=== PATIENT | male | born 1950 | race Caucasian/White ===

== ENCOUNTER 2023-07-27 11:05 | Emergency (ER) | payer MEDICARE, OTHER, SELFPAY ==
[2023-07-27] VITALS (20 sets, daily range): BP systolic 122–165; BP diastolic 81–95; PULSE 60–67; RESP 12–24; TEMP 36.7; O2SAT 89–100; BMI 33.9
--- NOTE | 2023-07-27 11:22 | ECG_ITS ---
[facility] Test Date: 2023-07-27 Pat Name: DARRION KIDD Department: Room: - Gender: Male [employer]: : 1950 Requested By: Order Number: [id number] Reading MD: KINGSLEY BLANCO Measurements Intervals [place] Rate: 66 P: 57 SD: 114 QRS: 52 QRSD: 96 T: 61 QT: 400 QTc: 414 Interpretive Statements 1100 Sinus rhythm [address] depression, can't exclude inferolateral ischemia 9150 abnormal ECG Electronically Signed On 07-27-2023 14:26:57 EST by KINGSLEY BLANCO
--- NOTE | 2023-07-27 11:22 | XR_ITS ---
[facility] [place] [id number] Patient Name: DARRION KIDD MRN: [id number] date: 1950 Sex: M Assigned Patient Location: ER Current Patient Location: ER Accession/Order Number: [id number] Exam Date: 07/27/2023 11:40 Report Date: 07/27/2023 12:01 At the request of: TREVA GRESHAM Procedure: XR chest 1V XR chest 1V, 07/27/2023 11:40 AM EST, OH001 INDICATION: CP COMPARISON: Chest radiograph from 05/11/2022 TECHNIQUE: Frontal view of the chest obtained. FINDINGS: The heart is normal in size. The aorta and mediastinum appear unremarkable. The pulmonary vasculature is normal. The lung volumes are slightly decreased. No focal infiltrate or consolidation is seen. There is no evidence of pneumothorax or pleural effusion. The osseous structures appear intact. XR/XR chest 1V IMPRESSION: No active pulmonary process. Electronically authenticated by: SHON SÁNCHEZ Date: 07/27/2023 12:01
--- NOTE | 2023-07-27 11:22 | ED_ITS ---
HPI - Chest Pain General Chief Complaint: Chest Pain Stated Complaint: CHEST PAIN/ COUGH Time Seen by Provider: 07/27/23 11:12 Source: patient Mode of arrival: walk-in History of Present Illness HPI narrative: 73-year-old male presents for chest pain. He's been having it intermittently since yesterday and it's across his chest and feels like a dull pressure. No trauma or fever. He had a slight cough today, nonproductive and no fever. The pain in his chest started before the cough. He also has a pruritic rash on both forearms. No new medications and no new soaps or detergents or any other new products. He had eaten some pickle's and some spicy foods and thinks that may be the cause of his symptom. Related Data Home Medications Medication Instructions Recorded Confirmed celecoxib 200 mg capsule 200 mg PO Q12H 07/27/23 07/27/23 gabapentin 400 mg capsule 400 mg PO Q12H 07/27/23 07/27/23 lisinopril 10 mg tablet 10 mg PO DAILY 07/27/23 07/27/23 metoprolol succinate 100 mg 100 mg PO DAILY 07/27/23 07/27/23 tablet,extended release 24 hr Allergies Allergy/AdvReac Type Severity Reaction Status Date / Time No Known Drug Allergies Allergy Verified 07/27/23 11:14 Review of Systems ROS Narrative A ten point review of systems is negative except as noted above. PFSH PFSH Social History Smoking status: Former smoker Exam Narrative Exam Narrative: Nurses note and vital signs reviewed and patient is not hypoxic. General: The patient appears well and in no apparent distress. Patient is resting comfortably on cart. Skin: Warm, dry, no pallor noted. There is if any erythematous rash present on the flexor side of each forearm. Head: Normocephalic, atraumatic Eye: Normal conjunctiva, no drainage Ears, Nose, Mouth, and Throat: oral mucosa is moist. Nares patent. Cardiovascular: Regular Rate and Rhythm Respiratory: Patient is in no distress, no accessory muscle use, lungs are clear to auscultation, no wheezing, rales or rhonchi Back: non-tender GI: soft and nontender Musculoskeletal: The patient has no evidence of calf tenderness, no pitting edema, symmetrical pulses noted bilaterally Neurological: A&O x4, normal speech Psychiatric: Cooperative Constitutional Vital Signs, click to edit/add: Last Vital Signs Temp 98.0 F 07/27/23 11:10 Pulse 60 07/27/23 12:10 Resp 12 07/27/23 12:10 BP 122/84 07/27/23 12:15 Pulse Ox 97 07/27/23 12:10 O2 Del Method Room Air 07/27/23 12:04 Course Vital Signs Vital signs: Vital Signs Temperature 98.0 F 07/27/23 11:10 Pulse Rate 66 07/27/23 11:10 Respiratory Rate 16 07/27/23 11:10 Blood Pressure 165/94 H 07/27/23 11:10 Pulse Oximetry 89 L 07/27/23 11:10 Temperature 98.0 F 07/27/23 11:10 Pulse Rate 60 07/27/23 12:10 Respiratory Rate 12 07/27/23 12:10 Blood Pressure 122/84 07/27/23 12:15 Pulse Oximetry 97 07/27/23 12:10 Oxygen Delivery Method Room Air 07/27/23 12:04 MDM - Chest Pain MDM Narrative Medical decision making narrative: His workup including two sets of troponin is negative and he is able to be discharged home. Hydrocortisone cream was recommended for the rash. At this point I do not suspect acute coronary syndrome. Treatment diagnosis and follow- up were discussed with the patient and his . Differential Diagnosis Differential diagnosis: Likely pneumothorax, unstable angina pectoris, atypical chest pain, st elevation myocardial infarction, costochondritis and chest pain Lab Data Attestation: I reviewed the patient's lab results. Labs: Lab Results 07/27/23 07/27/23 07/27/23 Range/Units 11:26 11:57 12:32 WBC 9.5 (4.0-11.0) 10^3/uL RBC 5.18 (4.70-6.10) 10^6/uL Hgb 15.1 (14.0-18.0) g/dL Hct 47.8 (42.0-54.0) % MCV 92.3 (80.0-94.0) fL MCH 29.2 (25.9-34.0) pg MCHC 31.6 (29.9-35.2) g/dL RDW 14.1 (11.0-15.0) % Plt Count 159 (150-450) 10^3/uL MPV 10.5 (9.5-13.5) fL Neut % (Auto) 70.4 (43.0-75.0) % Lymph % (Auto) 17.1 L (20.5-60.0) % Patrick % (Auto) 10.2 (1.7-12.0) % Eos % (Auto) 1.8 (0.9-7.0) % Baso % (Auto) 0.2 (0.2-2.0) % Neut # (Auto) 6.7 H (1.4-6.5) 10^3/uL Lymph # (Auto) 1.6 (1.2-3.8) 10^3/uL Patrick # (Auto) 1.0 H (0.3-0.8) 10^3/uL Eos # (Auto) 0.2 (0.0-0.7) 10^3/uL Baso # (Auto) 0.0 (0.0-0.1) 10^3/uL Abs Immat Gran (auto) 0.03 (0.00-0.03) 10^3/uL Imm/Tot Granulo (auto) 0.3 (0.0-0.5) % Sodium 141 (136-145) mmol/L Potassium 4.6 (3.5-5.1) mmol/L Chloride 108 H (98-107) mmol/L Carbon Dioxide 25.4 (21.0-32.0) mmol/L Anion Gap 12.2 BUN 15.0 (7.0-18.0) mg/dL Creatinine 1.06 (0.70-1.30) mg/dL Est GFR ( Amer) >60 (>=60) Est GFR (Non-Af Amer) >60 (>=60) BUN/Creatinine Ratio 14.2 Glucose 85 (74-106) mg/dL Calcium 9.2 (8.5-10.1) mg/dL Troponin I High Sens 9.2 9.3 (4.0-76.1) pg/mL Influenza Type A Ag Negative Influenza Type B Ag Negative SARS-CoV-2 Ag (CV2AG) Negative (NEGATIVE) Imaging Data Chest x-ray: Radiologist's impression: ITS Impressions Chest X-Ray 07/27/23 11:22 IMPRESSION: No active pulmonary process. Electronically authenticated by: SHON SÁNCHEZ Date: 07/27/2023 12:01 ECG Data Attestation: I personally reviewed and interpreted this ECG as follows: (EKG on my interpretation shows sinus rhythm without acute change in a rate of 66.) Heart Score History: Slightly/Non-Suspicious ECG: Normal Age: >65 years Risk Factors: 1 or 2 Risk Factors Troponin: <Normal Limit Total Heart Score Recommendations & Risks:: 3 Discharge Plan Discharge Chief Complaint: Chest Pain Clinical Impression: Chest pain Patient Disposition: Home, Self-Care Time of Disposition Decision: 13:11 Condition: Good Mode of Transportation: Private Vehicle Prescriptions / Home Meds: No Action celecoxib 200 mg capsule 200 mg PO Q12H metoprolol succinate 100 mg tablet extended release 24 hr 100 mg PO DAILY gabapentin 400 mg capsule 400 mg PO Q12H lisinopril 10 mg tablet 10 mg PO DAILY Instructions: Chest Pain (ED) Stand Alone Forms: Portal Instructions Referrals: OSVALDO MATT [Primary Care Provider] - 1 week
[2023-07-27 11:38] LABS: Basophils Percent Auto 0.2 % (0.2-2.0); Eosinophils Absolute Auto 0.2 10^3/uL (0.0-0.7); Eosinophils Percent Auto 1.8 % (0.9-7.0); Hematocrit 47.8 % (42.0-54.0); Hemoglobin 15.1 g/dL (14.0-18.0); Immature Granulocytes Abs Auto 0.03 10^3/uL (0.00-0.03); Immature Granulocytes Pct Auto 0.3 % (0.0-0.5); Lymphocytes Absolute Auto 1.6 10^3/uL (1.2-3.8); Lymphocytes Percent Auto 17.1 % (20.5-60.0); Mean Corpuscular HGB Conc 31.6 g/dL (29.9-35.2); Mean Corpuscular Hemoglobin 29.2 pg (25.9-34.0); Mean Corpuscular Volume 92.3 fL (80.0-94.0); Mean Platelet Volume 10.5 fL (9.5-13.5); Monocytes Percent Auto 10.2 % (1.7-12.0); Neutrophils Absolute Auto 6.7 10^3/uL (1.4-6.5); Neutrophils Percent Auto 70.4 % (43.0-75.0); Platelet Count 159 10^3/uL (150-450); Red Blood Count 5.18 10^6/uL (4.70-6.10); Red Cell Distribution Width 14.1 % (11.0-15.0); White Blood Count 9.5 10^3/uL (4.0-11.0)
[2023-07-27 12:02] LABS: Anion Gap 12.2; BUN Creatinine Ratio 14.2; Calcium 9.2 mg/dL (8.5-10.1); Carbon Dioxide 25.4 mmol/L (21.0-32.0); Chloride 108 mmol/L (98-107); Estimated GFR (African America >60 (>=60); Estimated GFR (Non-African Ame >60 (>=60); Glucose 85 mg/dL (74-106); Potassium 4.6 mmol/L (3.5-5.1); Sodium 141 mmol/L (136-145); Troponin I High Sensitivity 9.2 pg/mL (4.0-76.1)
[2023-07-27 12:16] LABS: Influenza Virus A Antigen Negative; Influenza Virus B Antigen Negative; Internal Control Within Normal Limits; SARS-CoV-2 Ag NEGATIVE (NEGATIVE)
[2023-07-27 12:54] LABS: Troponin I High Sensitivity 9.3 pg/mL (4.0-76.1)
== END 2023-07-27 13:45 | disposition home or self-care (01) ==
PROVIDERS: Emergency Provider Emergency Medicine; PCP Internal Medicine
DX: R07.9 Chest pain, unspecified (principal); Z79.899 Other long term (current) drug therapy; Z87.891 Personal history of nicotine dependence; Z20.822 Contact with and (suspected) exposure to COVID-19
CPT/HCPCS: 36415; 71045; 80048; 84484; 85025; 87804; 87811; 93005; 99285

== ENCOUNTER 2023-12-11 19:31 | Outpatient (OUT) | payer MEDICARE, OTHER, SELFPAY ==
--- OUTSIDE RECORDS SUMMARY | 2023-12-11 19:35 | XMS_ITS | CCD ---
Author Organization [facility] Care Team Providers Care Sustainable Agriculture Specialist Name Role Phone PHYSICIAN, DEFAULT Unavailable Unavailable PHYSICIAN, DEFAULT Unavailable Unavailable VLADIMIR CAVAZOS Unavailable Unavailable No, Physician Primary Care Provider UnavailVladimir Arellano Unavailable LINDA RUTH Consulting Unavailable GERALD, DR HARISH Gallardo Attending Unavailable GERALD, DR HARISH Gallardo Admitting Unavailable PERAZA, DR SANTIAGO Stanton Primary Care Unavailable PERAZA, DR SANTIAGO Stanton Attending Unavailable SARA, DR SANTIAGO Stanton Consulting Unavailable SARA, DR SANTIAGO Stanton Primary Care Unavailable PERAZA, DR SANTIAGO Stanton Admitting Unavailable PERAZA, DR SANTIAGO Stanton Admitting Unavailable PERAZA, DR SANTIAGO Stanton Attending Unavailable PERAZA, DR SANTIAGO Stanton Consulting Unavailable PERAZA, DR SANTIAGO Stanton Primary Care Unavailable MILLER, DR PEG Sacnhez Attending Unavaillucius BHATT, DR PEG Sanchez Consulting Unavaillucius BHATT, DR PEG Sanchez Admitting Unavaillucius PERAZA, DR SANTIAGO Stanton Primary Care Unavailable POPPY, DR TUCKER Keller Consulting Unavailable Jaron Agee. Attending Unavailable Clarice Gilman Attending Unavailable Yue Estevez Unavailable Vladimir Cavazos MD Primary Care Provider NO FAMILY, PHYSICIAN Primary Care Provider UnaMD Sharan Perera Attending Provider ABBEY ROWE Attending Unavailable VLADIMIR CAVAZOS Attending Unavailable NAOMI SAENZ Attending Unavailable SHARAN AMAYA Referring Unavailable Sharan Amaya Attending Unavailable Sharan Amaya Admitting Unavailable NO FAMILY, PHYSICIAN Primary Care Unavailable Allergies Allergy Classification Reported Allergen(s) Allergy Type Date of Onset Reaction(s) Facility (1 source) No Known Medication Allergies; Translations: [No Known Medication Allergies] Propensity to adverse reactions (disorder) [facility] Repository Medications Current Medications Medication Drug Class(es) Dates Sig (Normalized) Sig (Original) celecoxib 200 mg oral capsule (2 sources) Nonsteroidal Anti-inflammatory Drug take 1 capsule by mouth every twelve hours CeleBREX 200 MG 1 capsule with food Orally TWICE A DAY Active take 1 capsule by mo uth every twenty-four hours CeleBREX 200 MG 1 capsule with food Orally Once a day Active 24 hr dilTIAZem hydrochloride 240 mg extended release oral capsule (1 source) Calcium Channel Jagjit take 1 capsule by mouth once daily, then take 1 capsule by mouth every twenty-four hours diltiazem CD (CARDIZEM CD) 240 mg 24 hr capsule Take 240 mg by mouth daily. 0 Active gabapentin 400 mg oral capsule (3 sources) Anti-epileptic Agent take 1 capsule by mouth twice daily gabapentin (NEURONTIN) 400 mg capsule Take 400 mg by mouth 2 (two) times a day. 0 Active take 1 capsule by mo uth every twenty-four hours Gabapentin 400 MG 1 capsule Orally Once a day Active lisinopril 10 mg oral tablet (3 sources) Angiotensin Converting Enzyme Inhibitor take 1 tablet by mouth once daily lisinopril (PRINIVIL,ZESTRIL) 10 mg tablet Take 10 mg by mouth daily. 0 Active meloxicam 15 mg oral tablet (1 source) Nonsteroidal Anti-inflammatory Drug take 1 tablet by mouth once daily meloxicam (MOBIC) 15 mg tablet Take 15 mg by mouth daily. 0 Active methylPREDNISolone 4 mg oral tablet (1 source) Corticosteroid Start: 2023 Medrol (Rob) 4 MG as directed Orally for daily dose take half with breakfast half with dinner for 6 days Jul, Active 24 hr metoprolol succinate 100 mg extended release oral tablet (2 sources) beta-Adrenergic Jagjit take 1 tablet by mouth every twenty-four hours Metoprolol Succinate ER 100 MG 1 tablet Orally Once a day Active tamsulosin hydrochloride 0.4 mg oral capsule (1 source) alpha-Adrenergic Jagjit take 1 capsule by mouth every twenty-four hours Tamsulosin HCl 0.4 MG 1 capsule Orally Once a day Active Completed/Discontinued Medications Medication Drug Class(es) Dates Sig (Normalized) Sig (Original) diphenhydrAMINE hydrochloride 25 mg oral capsule (1 source) Histamine-1 Receptor Antagonist take 1 capsule by mouth every twenty-four hours diphenhydrAMINE HCl 25 MG 1 capsule at bedtime as needed Orally Once a day Not-Taking/PRN Problems Active Problems Problem Classification Problem Date Documented Date Episodic/Chronic Allergic reactions (1 source) Unspecified contact dermatitis, unspecified cause Episodic Cataract (1 source) Nuclear sclerotic cataract; Translations: [Age-related nuclear cataract, right eye] Onset: 7 02-18-2017 Chronic Disorders of lipid metabolism (1 source) Pure hypercholesterolemia, unspecified; Translations: [PURE HYPERCHOLESTEROLEMIA UNSPEC] Onset: 2 Chronic Essential hypertension (4 sources) Essential (primary) hypertension; Translations: [ESSENTIAL PRIMARY HYPERTENSION] Onset: 2 Chronic Gout and other crystal arthropathies (5 sources) Gout, unspecified; Translations: [GOUT UNSPECIFIED] Onset: 2 Chronic Osteoarthritis (1 source) Unilateral primary osteoarthritis, right knee; Translations: [UNI PRIM OSTEOARTHRITIS RT KNEE] Onset: 2 Chronic Other aftercare (1 source) Other medical terminologist (current) drug therapy; Translations: [OTH CAR DETAILER CURRENT DRUG THERAPY] Onset: 2 Episodic Other bone disease and musculoskeletal deformities (2 sources) Idiopathic scoliosis of lumbar spine; Translations: [Other idiopathic scoliosis, lumbar region] Chronic Other diseases of veins and lymphatics (2 sources) Venous insufficiency of leg; Translations: [Venous insufficiency (chronic) (peripheral)] Episodic Other male genital disorders (1 source) Disorder of prostate, unspecified; Translations: [DISORDER OF PROSTATE UNSPECIFIED] Onset: 2 Episodic Other non-traumatic joint disorders (1 source) Pain in unspecified joint; Translations: [Pain in unspecified joint] Onset: 4 Episodic Spondylosis; intervertebral disc disorders; other back problems (3 sources) Prolapsed lumbar intervertebral disc; Translations: [Other intervertebral disc displacement, lumbar region] Chronic Unclassified (2 sources) COUGH, UNSPECIFIED; Translations: [COUGH, UNSPECIFIED] Onset: 2 Viral infection (1 source) COVID-19; Translations: [COVID-19] Onset: 2 Past or Other Problems Problem Classification Problem Date Documented Da te Episodic/Chronic Spondylosis; intervertebral disc disorders; other back problems (5 sources) Spinal stenosis, lumbar region without neurogenic claudication; Translations: [Radiculopathy, lumbar region] Onset: 08-24-2021 Episodic Unclassified (1 source) COUGH, UNSPECIFIED; Translations: [COUGH, UNSPECIFIED] Onset: 05-11-2022 Results Test Name Value Interpretation Reference Range Facility [facility] Antinuclear Antibodieson 10-22-2023 Antinuclear Abs, IFA Negative Normal . [facility] Comment on above: Result Comment: Nega tive <1:80 Borderline 1:80 Positive >1:80 ICAP nomenclature: [id number] For more information about Hep-2 cell patterns use ANApatterns.org, the official website for the International Consensus on Antinuclear Antibody ([facility]) Patterns (ICAP). Performed at: - [facility] [address] [id number] Travel Consultant: David Lawson PhD, Phone: [phone] PERFORMED BY: [place] [address] RECORDER SHAHNAZ BEAL M.D. Performed By: #### C MP, PTH, CRP, ESR, CBC #### [address] #### [place] #### [facility] , Alanine aminotransferase [En zymatic activity/volume] in Serum or PlasmaOrdered By: Sharan Amaya on 10-22-2023 ALT [Catalytic activity/Vol] 14 U/L 7-52 [facility] Albumin [Mass/volume] in Ser um or Plasma by Bromocresol green (BCG) dye binding methoOrdered By: Sharan Amaya on 10-22-2023 Albumin BCG dye [Mass/Vol] 4.4 g/dL 3.5-5.7 [facility] Alkaline phosphatase [Enzyma tic activity/volume] in Serum or PlasmaOrdered By: Sharan Amaya on 10-22-2023 ALP [Catalytic activity/Vol] 43 U/L 34-104 [facility] Aspartate aminotransferase [ Enzymatic activity/volume] in Serum or PlasmaOrdered By: Sharan Amaya on 10-22-2023 AST [Catalytic activity/Vol] 21 U/L 13-39 [facility] Basophils Auto (Bld) [#/Vol] Ordered By: Sharan Amaya on 10-22-2023 Basophils (Bld) [#/Vol] 0.0 10*3/uL 0.0-0.2 [facility] Basophils/100 WBC Auto (Bld) Ordered By: Sharan Amaya on 10-22-2023 Basophils/100 WBC (Bld) 0.5 % . [facility] Bilirubin.total [Mass/volume ] in Serum or PlasmaOrdered By: Sharan Amaya on 10-22-2023 Bilirubin [Mass/Vol] 0.7 mg/dL 0.3-1.0 [facility] C reactive protein [Mass/vol ume] in Serum or PlasmaOrdered By: Sharan Amaya on 10-22-2023 CRP [Mass/Vol] < 0.5 mg/dL 0.0-0.5 [facility] C-Reactive Proteinon 024 CRP [Mass/Vol] mg/L Normal 0.0-0.5 [facility] Comment on above: Result Comment: PERF ORMED BY: [place] [address] RECORDER SHAHNAZ BEAL M.D. Performed By: #### C MP, PTH, CRP, ESR, CBC #### [address] #### [place] #### [facility] , Calcium [Mass/volume] in Ser um or PlasmaOrdered By: Sharan Amaya on 10-22-2023 Calcium [Mass/Vol] 9.4 mg/dL 8.6-10.3 [facility] Carbon dioxide, total [Moles /volume] in Serum or PlasmaOrdered By: Sharan Amaya on 10-22-2023 CO2 [Moles/Vol] 31.1 mmol/L 21.0-31.0 [facility] Chloride [Moles/volume] in S emili or PlasmaOrdered By: Sharan Amaya on 10-22-2023 Chloride [Moles/Vol] 107 mmol/L 98-107 [facility] Complete Blood Count Auto Di ffon 10-22-2023 Basophils (Bld) [#/Vol] 0.0 10*3/uL Normal 0.0-0.2 [facility] Comment on above: Performed By: #### C MP, PTH, CRP, ESR, CBC #### [place] [address] [place] #### [place] #### [facility] , Basophils/100 WBC (Bld) 0.5 % Normal . [facility] Comment on above: Performed By: #### C MP, PTH, CRP, ESR, CBC #### [place] [address] [place] #### [place]ERTO #### [facility] , Eosinophils (Bld) [#/Vol] 0.2 10*3/uL Normal 0.0-0.45 [facility] Comment on above: Performed By: #### C MP, PTH, CRP, ESR, CBC #### [address] #### [place] #### [facility] , Eosinophils/100 WBC (Bld) 3.3 % Normal . [facility] Comment on above: Performed By: #### C MP, PTH, CRP, ESR, CBC #### [address] #### [place] #### [facility] , Erythrocyte distribution width (RBC) [Ratio] 14.6 % Normal 12.0-14.8 [facility] Comment on above: Performed By: #### C MP, PTH, CRP, ESR, CBC #### [place] [address] [place] #### R[place]ERTO #### [facility] , Hematocrit (Bld) [Volume fraction] 43.5 % Normal 38.8-50.0 [facility] Comment on above: Performed By: #### C MP, PTH, CRP, ESR, CBC #### [place] [address] [place] #### R[place]ERTO #### [facility] , Hemoglobin (Bld) [Mass/Vol] 14.4 g/dL Normal 13.0-17.0 [facility] Comment on above: Performed By: #### C MP, PTH, CRP, ESR, CBC #### [place] [address] [place] #### ROVERTO #### [facility] , Lymphocytes (Bld) [#/Vol] 1.7 10*3/uL Normal 1.00-4.8 [facility] Comment on above: Performed By: #### C MP, PTH, CRP, ESR, CBC #### [address] #### R[place]ERT[place] #### [facility] , Lymphocytes/100 WBC (Bld) 26.0 % Normal . [facility] Comment on above: Performed By: #### C MP, PTH, CRP, ESR, CBC #### [address] #### R[place] #### [facility] , MCH (RBC) [Entitic mass] 29.3 pg Normal 27.5-35.2 [facility] Comment on above: Performed By: #### C MP, PTH, CRP, ESR, CBC #### [address] #### R[place] #### [facility] , MCV (RBC) [Entitic vol] 88.6 fL Normal 83.5-101 [facility] Comment on above: Performed By: #### C MP, PTH, CRP, ESR, CBC #### [place] [address] [place] #### ROVERTO #### [facility] , Mean Corpuscular HGB Conc 33.1 g/dL Normal 32.5-35.6 [facility] Comment on above: Performed By: #### C MP, PTH, CRP, ESR, CBC #### [place] [address] [place] #### R[place]ERTO #### [facility] , Monocytes (Bld) [#/Vol] 0.7 10*3/uL Normal 0.0-0.8 [facility] Comment on above: Performed By: #### C MP, PTH, CRP, ESR, CBC #### [place] [address] [place] #### ROVERTO #### [facility] , Monocytes/100 WBC (Bld) 11.2 % Normal . [facility] Comment on above: Performed By: #### C MP, PTH, CRP, ESR, CBC #### [place] [address] [place] #### R[place]ERTO #### [facility] , Neutrophils (Bld) [#/Vol] 3.8 10*3/uL Normal 1.8-7.7 [facility] Comment on above: Performed By: #### C MP, PTH, CRP, ESR, CBC #### [place] [address] [place] #### ROVERTO #### [facility] , Neutrophils/100 WBC (Bld) 59.0 % Normal . [facility] Comment on above: Performed By: #### C MP, PTH, CRP, ESR, CBC #### [address] #### R[place] #### [facility] , NRBC% 0.1 /100{WBC} Normal 0-0.5 [facility] Comment on above: Performed By: #### C MP, PTH, CRP, ESR, CBC #### [place] [address] [place] #### ROVERTO #### [facility] , Platelet mean volume (Bld) [Entitic vol] 8.9 fL Normal 6.6-10.1 [facility] Comment on above: Performed By: #### C MP, PTH, CRP, ESR, CBC #### [address] #### R[place]ERTO #### [facility] , Platelets (Bld) [#/Vol] 174 10*3/uL Normal 150-450 [facility] Comment on above: Performed By: #### C MP, PTH, CRP, ESR, CBC #### [place] [address] [place] #### ROVERTO #### [facility] , RBC (Bld) [#/Vol] 4.91 10*6/uL Normal 3.90-5.60 [facility] Comment on above: Performed By: #### C MP, PTH, CRP, ESR, CBC #### [address] #### [place] #### [facility] , WBC (Bld) [#/Vol] 6.4 10*3/uL Normal 4.1-10.5 [facility] Comment on above: Performed By: #### C MP, PTH, CRP, ESR, CBC #### [address] #### [place] #### [facility] , Comprehensive Metabolic Pane elvie 10-22-2023 Albumin [Mass/Vol] 4.4 g/dL Normal 3.5-5.7 [facility] Comment on above: Performed By: #### C MP, PTH, CRP, ESR, CBC #### [place] [address] [place] #### R[place]ERTO #### [facility] , Albumin/Globulin [Mass ratio] 2.0 {ratio} Normal [facility] Comment on above: Performed By: #### C MP, PTH, CRP, ESR, CBC #### [place] [address] [place] #### R[place]ERTO #### [facility] , ALP [Catalytic activity/Vol] 43 U/L Normal 34-104 [facility] Comment on above: Performed By: #### C MP, PTH, CRP, ESR, CBC #### [place] [address] [place] #### ROVERTO #### [facility] , ALT [Catalytic activity/Vol] 14 U/L Normal 7-52 [facility] Comment on above: Performed By: #### C MP, PTH, CRP, ESR, CBC #### [place] [address] [place] #### R[place]ERTO #### [facility] , Anion gap [Moles/Vol] 8.4 mmol/L Normal 6.0-15.0 [facility] Comment on above: Performed By: #### C MP, PTH, CRP, ESR, CBC #### [address] #### [place] #### [facility] , AST [Catalytic activity/Vol] 21 U/L Normal 13-39 [facility] Comment on above: Performed By: #### C MP, PTH, CRP, ESR, CBC #### [address] #### R[place]ERT[place] #### [facility] , Bilirubin [Mass/Vol] 0.7 mg/dL Normal 0.3-1.0 [facility] Comment on above: Performed By: #### C MP, PTH, CRP, ESR, CBC #### [place] [address] [place] #### ROVERTO #### [facility] , Calcium [Mass/Vol] 9.4 mg/dL Normal 8.6-10.3 [facility] Comment on above: Performed By: #### C MP, PTH, CRP, ESR, CBC #### [place] [address] [place] #### ROVERTO #### [facility] , Chloride [Moles/Vol] 107 mmol/L Normal 98-107 [facility] Comment on above: Performed By: #### C MP, PTH, CRP, ESR, CBC #### [place] [address] [place] #### ROVERTO #### [facility] , CO2 [Moles/Vol] 31.1 mmol/L High 21.0-31.0 [facility] Comment on above: Performed By: #### C MP, PTH, CRP, ESR, CBC #### [place] [address] [place] #### ROVERTO #### [facility] , Creatinine [Mass/Vol] 1.13 mg/dL Normal 0.70-1.30 [facility] Comment on above: Performed By: #### C MP, PTH, CRP, ESR, CBC #### [address] #### R[place]ERTO #### [facility] , GFR/1.73 sq M.predicted MDRD (S/P/Bld) [Vol rate/Area] mL/min/{1.73_m2} Normal [facility] Comment on above: Performed By: #### C MP, PTH, CRP, ESR, CBC #### [place] [address] [place] #### ROVERTO #### [facility] , Globulin (S) [Mass/Vol] 2.2 g/dL Normal T [facility] Comment on above: Performed By: #### C MP, PTH, CRP, ESR, CBC #### [place] [address] [place] #### ROVERTO #### [facility] , Glucose [Mass/Vol] 87 mg/dL Normal 70-100 [facility] Comment on above: Result Comment: [place] Glucose Reference Range is dependent on time and content of last meal. Glucose of more than 200 mg/dL in a nonstressed, ambulatory subject supports the diagnosis of Diabetes Mellitus. ADA recommended reference range Performed By: #### C MP, PTH, CRP, ESR, CBC #### [facility] [address] [place] [address] [place] #### ROVERTO #### [facility] , Potassium [Moles/Vol] 4.5 mmol/L Normal 3.5-5.1 [facility] Comment on above: Performed By: #### C MP, PTH, CRP, ESR, CBC #### [place] [address] [place] #### ROVERTO #### [facility] , Protein [Mass/Vol] 6.6 g/dL Normal 6.4-8.9 [facility] Comment on above: Performed By: #### C MP, PTH, CRP, ESR, CBC #### [place] [address] [place] #### ROVERTO #### [facility] , Sodium [Moles/Vol] 142 mmol/L Normal 136-145 [facility] Comment on above: Performed By: #### C MP, PTH, CRP, ESR, CBC #### [place] [address] [place] #### ROVERTO #### [facility] , Urea nitrogen [Mass/Vol] 16 mg/dL Normal 7-25 [facility] Comment on above: Performed By: #### C MP, PTH, CRP, ESR, CBC #### [facility] [address] [place] [address] [place] #### ROVERTO #### [facility] , Creatinine [Mass/volume] in Serum or PlasmaOrdered By: Sharan Amaya on 10-22-2023 Creatinine [Mass/Vol] 1.13 mg/dL 0.70-1.30 [facility] Eosinophils Auto (Bld) [#/Vo l]Ordered By: Sharan Amaya on 10-22-2023 Eosinophils (Bld) [#/Vol] 0.2 10*3/uL 0.0-0.45 [facility] Eosinophils/100 WBC Auto (Bl d)Ordered By: Sharan Amaya on 10-22-2023 Eosinophils/100 WBC (Bld) 3.3 % . [facility] Erythrocyte Sedimentation Ra alberto 10-22-2023 ESR (Bld) [Velocity] 6 mm/h Normal 0-19 [facility] Comment on above: Result Comment: PERF ORMED BY: [place] [address] RECORDER SHAHNAZ BEAL M.D. Performed By: #### C MP, PTH, CRP, ESR, CBC #### [facility] [address] [place] [address] [place] #### ROVERTO #### [facility] , Erythrocyte distribution wid th Auto (RBC) [Ratio]Ordered By: Sharan Amaya on 10-22-2023 Erythrocyte distribution width (RBC) [Ratio] 14.6 % 12.0-14.8 [facility] Erythrocyte sedimentation ra te by Photometric methodOrdered By: Sharan Amaya on 10-22-2023 ESR Photometric method (Bld) [Velocity] 6 mm/hr 0-19 [facility] Globulin Calc (S) [Mass/Vol] Ordered By: Sharan Amaya on 10-22-2023 Globulin (S) [Mass/Vol] 2.2 g/dL [facility] Glucose [Mass/volume] in Ser um or PlasmaOrdered By: Sharan Amaya on 10-22-2023 Glucose [Mass/Vol] 87 mg/dL 70-100 [facility] Comment on above: ADA recommended refe rence rangeRandom Glucose Reference Range is dependent on time and content of last meal. Glucose of more than 200 mg/dL in a nonstressed, ambulatory subject supports the diagnosis of Diabetes Mellitus. Hematocrit Auto (Bld) [Volum e fraction]Ordered By: Sharan Amyaa on 10-22-2023 Hematocrit (Bld) [Volume fraction] 43.5 % 38.8-50.0 [facility] Hemoglobin [Mass/volume] in BloodOrdered By: Sharan Amaya on 10-22-2023 Hemoglobin (Bld) [Mass/Vol] 14.4 g/dL 13.0-17.0 [facility] Leukocytes [#/volume] correc george for nucleated erythrocytes in Blood by Automated counOrdered By: Sahran Amaya on 10-22-2023 WBC corrected for nucl RBC Auto (Bld) [#/Vol] 6.4 10*3/uL 4.1-10.5 [facility] Lymphocytes Auto (Bld) [#/Vo l]Ordered By: Sharan Amaya on 10-22-2023 Lymphocytes (Bld) [#/Vol] 1.7 10*3/uL 1.00-4.8 [facility] Lymphocytes/100 WBC Auto (Bl d)Ordered By: Sharan Amaya on 10-22-2023 Lymphocytes/100 WBC (Bld) 26.0 % . [facility] MCH Auto (RBC) [Entitic mass ]Ordered By: Sharan Amaya on 10-22-2023 MCH (RBC) [Entitic mass] 29.3 pg 27.5-35.2 [facility] MCHC Auto (RBC) [Mass/Vol]Or dered By: Sharan Amaya on 10-22-2023 MCHC (RBC) [Mass/Vol] 33.1 g/dL 32.5-35.6 [facility] MCV Auto (RBC) [Entitic vol] Ordered By: Sharan Amaya on 10-22-2023 MCV (RBC) [Entitic vol] 88.6 fL 83.5-101 [facility] Monocytes Auto (Bld) [#/Vol] Ordered By: Sharan Amaya on 10-22-2023 Monocytes (Bld) [#/Vol] 0.7 10*3/uL 0.0-0.8 [facility] Monocytes/100 WBC Auto (Bld) Ordered By: Sharan Amaya on 10-22-2023 Monocytes/100 WBC (Bld) 11.2 % . [facility] Neutrophils Auto (Bld) [#/Vo l]Ordered By: Sharan Amaya on 10-22-2023 Neutrophils (Bld) [#/Vol] 3.8 10*3/uL 1.8-7.7 [facility] Neutrophils/100 WBC Auto (Bl d)Ordered By: Sharan Amaya on 10-22-2023 Neutrophils/100 WBC (Bld) 59.0 % . [facility] No Panel InformationOrdered By: Sharan Amaya on 10-22-2023 Estimated GFR (CKD-EPI) > 60.0 mL/Min [facility] Creatinine Clearance (Chem N/A [facility] Nucleated erythrocytes [Pres ence] in Blood by Automated countOrdered By: Sharan Amaya on 10-22-2023 Nucleated RBC Auto Ql (Bld) 0.1 /100{WBC} 0-0.5 [facility] Parathyrin.intact [Mass/volu me] in Serum or PlasmaOrdered By: Sharan Amaya on 10-22-2023 Parathyrin.intact [Mass/Vol] 72.0 pg/mL [facility] Parathyroid Hormone Intacton 10-22-2023 Parathyroid Hormone Intact 72.0 pg/mL Normal [facility] Comment on above: Result Comment: PERF ORMED BY: [place] [address] RECORDER SHAHNAZ BEAL M.D. Performed By: #### C MP, PTH, CRP, ESR, CBC #### [address] #### ROVERTO #### [facility] , Platelet mean volume Auto (B ld) [Entitic vol]Ordered By: Sharan Amaya on 10-22-2023 Platelet mean volume (Bld) [Entitic vol] 8.9 fL 6.6-10.1 [facility] Platelets Auto (Bld) [#/Vol] Ordered By: Sharan Amaya on 10-22-2023 Platelets (Bld) [#/Vol] 174 10*3/uL 150-450 [facility] Potassium [Moles/volume] in Serum or PlasmaOrdered By: Sharan Amaya on 10-22-2023 Potassium [Moles/Vol] 4.5 mmol/L 3.5-5.1 [facility] Protein [Mass/volume] in Ser um or PlasmaOrdered By: Sharan Amaya on 10-22-2023 Protein [Mass/Vol] 6.6 g/dL 6.4-8.9 [facility] RBC Auto (Bld) [#/Vol]Ordere d By: Sharan Amaya on 10-22-2023 RBC (Bld) [#/Vol] 4.91 10*6/uL 3.90-5.60 [facility] Serum or plasma albumin/glob ulin mass ratioOrdered By: Sharan Amaya on 10-22-2023 Albumin/Globulin [Mass ratio] 2.0 {ratio} [facility] Serum or plasma anion gap de terminationOrdered By: Sharan Amaya on 10-22-2023 Anion gap [Moles/Vol] 8.4 mmol/L 6.0-15.0 [facility] Sodium [Moles/volume] in Ser um or PlasmaOrdered By: Sharan Amaya on 10-22-2023 Sodium [Moles/Vol] 142 mmol/L 136-145 [facility] Urea nitrogen [Mass/volume] in Serum or PlasmaOrdered By: Sharan Amaya on 10-22-2023 Urea nitrogen [Mass/Vol] 16 mg/dL 7-25 [facility] WBC Auto (Bld) [#/Vol]Ordere d By: Sharan Amaya on 10-22-2023 WBC (Bld) [#/Vol] 6.4 10*3/uL 4.1-10.5 [facility] XR FOOT 3+ VIEWS LEFTon 10-01 XR FOOT 3+ VIEWS LEFT FINDINGS: Minimal arthritic changes involve the 1st MTP and IP joints. No evidence of cortical or stress fracture is seen. No focal soft tissue swelling is seen. No foreign body is visualized. Small plantar calcaneal spur. IMPRESSION: Minimal arthritis, no cortical or stress fracture TRANSCRIBED BY: ELECTRONICALLY SIGNED BY: Donnie Irby MD Normal Not Available XR FOOT 3+ VIEWS RIGHTon XR FOOT 3+ VIEWS RIGHT FINDINGS: Mild arthritic changes involve the intertarsal, tarsal metatarsal, 1st MTP and IP joints. No evidence of cortical or stress fracture is seen. No focal soft tissue swelling is seen. No foreign body is visualized. Small plantar calcaneal spur. Several mm calcification distal Achilles region near the calcaneal insertion site, non-acute. IMPRESSION: 1. Mild arthritis, no cortical or stress fracture 2. Distal Achilles findings can be consistent with prior tear and/or calcific tendinitis TRANSCRIBED BY: ELECTRONICALLY SIGNED BY: Donnie Irby MD Normal Not Available XR HAND 3+ VIEWS LEFTon 10-01 XR HAND 3+ VIEWS LEFT FINDINGS: Mild arthritic changes involve the MCP and IP joints. No evidence of cortical or stress fracture is seen. No focal soft tissue swelling is seen. No foreign body is visualized. IMPRESSION: Mild arthritis, no fracture TRANSCRIBED BY: ELECTRONICALLY SIGNED BY: Donnie Irby MD Normal Not Available XR HAND 3+ VIEWS RIGHTon XR HAND 3+ VIEWS RIGHT FINDINGS: Mild arthritic changes involve the MCP and IP joints. No evidence of cortical or stress fracture is seen. No focal soft tissue swelling is seen. No foreign body is visualized. IMPRESSION: Mild arthritis, no fracture TRANSCRIBED BY: ELECTRONICALLY SIGNED BY: Donnie Irby MD Normal Not Available XR LUMBAR SPINE AP/LAT/OBLIQ UESon 10-22-2023 XR LUMBAR SPINE AP/LAT/OBLIQUES FINDINGS: Mild mid lumbar dextroscoliosis is present. Vertebral body heights are normal. Moderate disc space loss throughout the lumbar spine, greatest involvement L2-3, L3-4. Several mm retrolisthesis throughout the lumbar spine, L1-2 through L3-4. Sclerosis involves posterior elements of the mid and distal lumbar spine ; however, no acute spondylolysis is seen. SI joints are normal for this age. No acute fracture is identified. Soft tissues are relatively unremarkable. IMPRESSION: Diffuse arthritis, multilevel retrolisthesis, no acute fracture. Flexion and extension maneuvers may be of assistance as clinically indicated. TRANSCRIBED BY: ELECTRONICALLY SIGNED BY: Donnie Irby MD Normal Not Available Family Medicine Office/Clini c Noteon 10-11-2022 Family Medicine Office/Clinic Note Chief Complaint rash on legs HPI Staff Giovanni is a 72 year old male who presents today to establish care. Establish Care: History: Any previous diagnosis: hyperlipidemia, HTN, sinus tachycardia, OA, polyarthritis, gout, degenerative disc disease of the lumbar region, sciatica, hx of leg cramping, chondromalacia of the patella History of seeing any specialist: Pain Management for pt's back When was your last doctors visit: December of 2021 Last provider: Dr. Peraza Any recent labs: December 2021 at [facility] Health Maintenance UTD: Colonoscopy: pt has never had this completed, he completed a cologuard testing which resulted positive and pt did not get the colonoscopy completed PSA: [facility] in 12/2021 Acute: Current issues/complaints: pain in feet and leg itches Pt states he has pain and itching when he wears his socks all day at the tops of his feet and ankles. Pt states he has had it for quite awhile he just put up with it. It almost feels like pins and needles so pt thought it was nerve pain. He does note a rash on his shins that's been present with the pain. Pt has been using hand creams, lotion, vaseline, hydrocortizone cream, all without relief. History of Present Illness pt presents today with itchy rash on shins. pt states he has had this for a long time. but the itching is getting worse. Review of Systems PHQ Score Initial Depression Screen Score: 0 ROS - Provider Constitutional: no fever, no chills, no sweats, no fatigue Respiratory: no shortness of breath, no cough, no orthopnea, no wheezing. Cardiovascular: no chest pain, no palpitations, no edema. Neurologic: no headache, no dizziness, no numbness, no weakness. Skin: red itchy rash JACE shins Physical Exam Vitals & Measurements HR: 56(Peripheral) BP: 134/78 SpO2: 95% HT: 71 in HT: 181 cm WT: 113.3 kg WT: 249.26 lb BMI: 34.58 General: alert, no acute distress ENMT: oral mucosa moist, no pharyngeal erythema or exudate Cardiovascular: regular rate and rhythm, normal peripheral perfusion Respiratory: Lungs CTA, respirations non labored Extremities: no deformity, no trauma Neurological: oriented x 4, LOC appropriate for age, CN II-XII intact, motor strength equal & normal bilaterally, speech normal skin: eczema patches on JACE shins Assessment/Plan 1. Wellness examination (Z00.00: Encounter for general adult medical examination without abnormal findings) pt presents today to establish care. pt has not had annual wellness labs since last year. he is not fasting today. he will return later in week for lab draw. pt c/o of rash on legs. see below. all questions answered. RTC as needed. will call pt with lab results Ordered: CBC w/ Auto Diff Comprehensive Metabolic Panel Lipid Panel PSA Screen, Total Thyroid Stimulating Hormone 2. Eczema (L30.9: Dermatitis, unspecified) has c/o red itchy rash on shins. he has had this for years. but the itching is getting worse. will order eurcrisa Ordered: crisaborole topical, See Instructions, 60 gm, Refill(s) 1, Topical BID, anydooR #[id number], 181, cm, 10/11/22 16:25:00 EDT, Height/Length Dosing, 113.3, kg, 10/11/22 16:25:00 EDT, Weight Dosing CBC w/ Auto Diff Comprehensive Metabolic Panel Lipid Panel PSA Screen, Total Thyroid Stimulating Hormone 3. BMI 34.0-34.9,adult (Z68.34: Body mass index [BMI] 34.0-34.9, adult) BMI education complete Ordered: Body Mass Index (BMI) documented 3008F 4. Non-smoker (Z78.9: Other specified health status) continue not smoking Ordered: Current tobacco non-user 1036F Follow-up No qualifying data available Problem List/Past Medical History Ongoing Chondromalacia of right patella DDD (degenerative disc disease), lumbar Essential hypertension H/O sinus tachycardia Hx of gout Hx of sciatica OA (osteoarthritis) Historical No qualifying data Procedure/Surgical History Arthroscopy, CE - Cataract extraction. Medications celecoxib 200 mg Cap, 200 mg= 1 cap(s), Oral, BID Eucrisa 2% topical ointment, See Instructions, 1 refills gabapentin 400 mg Cap lisinopril 10 mg Tab, 10 mg= 1 tab(s) metoprolol 100 mg ER Tab, 100 mg= 1 tab(s), Oral, Daily Allergies No Known Medication Allergies Social History Alcohol - Low Risk, 10/11/2022 1-2 times per year, 1 drinks/episode average. 4.00 drinks/episode maximum. Household alcohol concerns: No., 10/11/2022 Substance Abuse - Denies Substance Abuse, 10/11/2022 Household substance abuse concerns: No., 10/11/2022 Tobacco - Denies Tobacco Use, 10/11/2022 Household tobacco concerns: No., 10/11/2022 Family History Family history is negative Immunizations Vaccine Date Status Comments influenza virus vaccine, inactivated 05/01/2022 Recorded influenza virus vaccine, inactivated 04/05/2021 Recorded SARS-CoV-2 (COVID-19) mRNA BNT-162b2 vax 04/05/2021 Recorded 2022-10-11: [id number] SARS-CoV-2 (COVID-19) mRNA BNT-162b2 vax 09/01/2020 Recorded SARS-CoV-2 (COVID-19) mRNA BNT (more content not included)... Normal [facility] Comment on above: Result Comment: Elec tronically Signed By: Clarice Frost\.br\Date and Time Signed: 10/11/22 17:48 EDT CBC AUTO DIFFon 05-11-2022 BASO # 0.0 103/ul Normal 0.0-0.1 [facility] Comment on above: Performed By: #### C BC #### [facility] [place] [facility] [address] [place] [address] Dr. Vel Trejo Basophils/100 WBC (Bld) 0.4 % Normal 0.2-2.0 [facility] Comment on above: Performed By: #### C BC #### [facility] [place] [facility] [address] [address] [address] Vel Trejo EO # 0.0 103/ul Normal 0.0-0.7 [facility] Comment on above: Performed By: #### C BC #### [facility] [place] [facility] [address] [address] [address] Vel Trejo Eosinophils/100 WBC (Bld) 0.0 % Critically low 0.9-7.0 [facility] Comment on above: Performed By: #### C BC #### [facility] [place] [facility] [address] [address] [address] Vel Trejo Erythrocyte distribution width (RBC) [Ratio] 15.6 % Critically high 11.0-15.0 [facility] Comment on above: Performed By: #### C BC #### [facility] [place] [facility] [address] [place] [address] Dr. Vel Trejo Hematocrit (Bld) [Volume fraction] 42.2 % Normal 42.0-54.0 [facility] Comment on above: Performed By: #### C BC #### [facility] [place] [facility] [address] [address] [address] Vel Trejo Hemoglobin (Bld) [Mass/Vol] 13.9 g/dL Critically low 14.0-18.0 [facility] Comment on above: Performed By: #### C BC #### [facility] [place] [facility] [address] [address] [address] Vel Trejo IG # 0.01 10e3/ul Normal 0.00-0.03 [facility] Comment on above: Performed By: #### C BC #### [facility] [place] [facility] [address] [place] [address] Dr. Vel Trejo IG % 0.2 % Normal 0.0-0.5 [facility] Comment on above: Performed By: #### C BC #### [facility] [place] [facility] [address] [place] [address] Dr. Vel Trejo LYMPH # 1.0 103/ul Critically low 1.2-3.8 [facility] Comment on above: Performed By: #### C BC #### [facility] [place] [facility] [address] [place] [address] Dr. Vel Trejo Lymphocytes/100 WBC (Bld) 19.6 % Critically low 20.5-60.0 [facility] Comment on above: Performed By: #### C BC #### [facility] [place] [facility] [address] [place] [address] Dr. Vel Trejo MANUAL DIFF REQ NO Normal [facility] Comment on above: Performed By: #### C BC #### [facility] [place] [facility] [address] [place] [address] Dr. Vel Trejo MCH (RBC) [Entitic mass] 29.1 pg Normal 25.9-34.0 [facility] Comment on above: Performed By: #### C BC #### [facility] [place] [facility] [address] [place] [address] Dr. Vel Trejo MCHC (RBC) [Mass/Vol] 32.9 g/dL Normal 29.9-35.2 [facility] Comment on above: Performed By: #### C BC #### [facility] [place] [facility] [address] [address] [address] Vel Trejo MCV (RBC) [Entitic vol] 88.3 fL Normal 80.0-94.0 [facility] Comment on above: Performed By: #### C BC #### [facility] [place] [facility] [address] [address] [address] Vel Trejo MONO # 1.0 103/ul Critically high 0.3-0.8 [facility] Comment on above: Performed By: #### C BC #### [facility] [place] [facility] [address] [address] [address] Vel Trejo Monocytes/100 WBC (Bld) 20.0 % Critically high 1.7-12. 0 [facility] Comment on above: Performed By: #### C BC #### [facility] [place] [facility] [address] [address] [address] Vel Trejo NEUT # 3.0 103/ul Normal 1.4-6.5 [facility] Comment on above: Performed By: #### C BC #### [facility] [place] [facility] [address] [address] [address] Vel Trejo Neutrophils/100 WBC (Bld) 59.8 % Normal 43.0-75.0 [facility] Comment on above: Performed By: #### C BC #### [facility] [place] [facility] [address] [address] [address] Vel Trejo Platelet mean volume (Bld) [Entitic vol] 10.2 fL Normal 9.5-13.5 [facility] Comment on above: Performed By: #### C BC #### [facility] [place] [facility] [address] [address] [address] Vel Trejo PLT 132 103/ul Critically low 150-450 [facility] Comment on above: Performed By: #### C BC #### [facility] [place] [facility] [address] [address] [address] Vel Trejo RBC 4.78 106/ul Normal 4.70-6.10 [facility] Comment on above: Performed By: #### C BC #### [facility] [place] [facility] [address] [place] [address] Dr. Vel Trejo WBC 5.0 103/ul Normal 4.0-11.0 [facility] [place] Comment on above: Performed By: #### C BC #### [facility] [place] [facility] [address] [place] [address] Dr. Vel Trejo Covid-19 PCR ([facility])on 05-02 SARS-CoV-2 (COVID-19) RNA BRANNON+probe Ql (Unsp spec) Detected Critically abnormal NOT DETECTED [facility] [place] Comment on above: Result Comment: This test is not yet approved or cleared by the [place] FDA. When there are no FDA-approved or cleared tests available, and other criteria are met, FDA can make tests available under an emergency access mechanism called an Emergency Use Authorization (EUA). The EUA for this test is supported by the [place] [employer] and Human Service's declaration that circumstances exist to justify the emergency use of in vitro diagnostics for the detection and/or diagnosis of the virus that causes COVID-19. This EUA will remain in effect for the duration of the COVID-19 declaration justifying emergency of IVDs, unless it is terminated or revoked by the FDA (after which the test may no longer be used). Performed By: #### C VDTBH #### [facility] [place] [facility] [address] [place] [address] Dr. Vel Trejo INFLUENZA A AND B AGon 05-11 [facility] SEE BELOW Normal [facility] [place] Comment on above: Result Comment: Nega tive for Flu A protein angiten. Infection due to Flu A cannot be ruled out. Flu A angiten in the sample may be below the detection limit of the test. Performed By: #### I NFLUAB #### [facility] [place] [facility] [address] [place] [address] Dr. Vel Trejo INFLUBNEG SEE BELOW Normal [facility] [place] Comment on above: Result Comment: Nega tive for Flu B protein antigen. Infection due to Flu B cannot be ruled out. Flu B antigen in the sample may be below the detection limit of the test. Performed By: #### I NFLUAB #### [facility] [place] [facility] [address] [address] [address] Vel Trejo INFLUENZA A AG Negative Normal NEGATIVE SEE COMMENT [facility] Comment on above: Performed By: #### I NFLUAB #### [facility] [place] [facility] [address] [address] [address] Vel rTejo INFLUENZA B AG Negative Normal NEGATIVE SEE COMMENT [facility] [place] Comment on above: Performed By: #### I NFLUAB #### [facility] [place] [facility] [address] [address] [address] Vel Trejo INTERNAL CONTROLS Within Normal Limits Normal Within Normal Limits [facility] Comment on above: Performed By: #### I NFLUAB #### [facility] [place] [facility] [address] [address] [address] Vel Trejo PROF 14(COMP METB)on 022 Albumin [Mass/Vol] 3.5 g/dL Normal 3.4-5.0 [facility] Comment on above: Performed By: #### C JOHN PAUL HSTROPN ####[facility] [place] [address] [address]DrKaterine Trejo Albumin/Globulin [Mass ratio] 1.1 {ratio} Normal [facility] Comment on above: Performed By: #### C JOHN PAUL HSTROPN ####[facility] [place] [address] [address]DrKaterine Trejo ALP [Catalytic activity/Vol] 57 U/L Normal 46-116 [facility] [place] Comment on above: Performed By: #### C JOHN PAUL HSTROPN ####[facility] [place] [address] [address]DrKaterine Trejo ALT [Catalytic activity/Vol] 39 U/L Normal 16-63 [facility] Comment on above: Performed By: #### C JOHN PAUL HSTROPN ####[facility] [place] [address] [address]DrKaterine Trejo Anion gap [Moles/Vol] 7.7 mmol/L Normal [facility] Comment on above: Performed By: #### C JOHN PAUL, HSTROPN ####[facility] [place] [address] [id number][address] Vel Trejo AST [Catalytic activity/Vol] 31 U/L Normal 15-37 [facility] [place] Comment on above: Performed By: #### C JOHN PAUL, HSTROPN ####[facility] [place] [address] [address]Dr. Vel Trejo Bilirubin [Mass/Vol] 0.4 mg/dL Normal 0.2-1.0 [facility] [place] Comment on above: Performed By: #### C JOHN PAUL, HSTROPN ####[facility] [place] [address] [address]Dr. Vel Trejo Calcium [Mass/Vol] 8.8 mg/dL Normal 8.5-10.1 [facility] Comment on above: Performed By: #### C JOHN PAUL, HSTROPN ####[facility] [place] [address] [address]Dr. Vel Trejo Chloride [Moles/Vol] 105 mmol/L Normal 98-107 [facility] [place] Comment on above: Performed By: #### C JOHN PAUL, HSTROPN ####[facility] [place] [address] [address]Dr. Vel Trejo CO2 [Moles/Vol] 29.1 mmol/L Normal 21.0-32.0 [facility] Comment on above: Performed By: #### C JOHN PAUL, HSTROPN ####[facility] [place] [address] [address]Dr. Vel Trejo Creatinine [Mass/Vol] 1.04 mg/dL Normal 0.70-1.30 [facility] [place] Comment on above: Performed By: #### C JOHN PAUL, HSTROPN ####[facility] [place] [address] [address]Dr. Vel Trejo EGFR-AF PRYDEINIG >60 Normal >=60 [facility] Comment on above: Performed By: #### C JOHN PAUL, HSTROPN ####[facility] [place] [address] [address]Dr. Vel Trejo EGFR-NON AF PRYDEINIG >60 Normal >=60 [facility] [place] Comment on above: Performed By: #### C JOHN PAUL, HSTROPN ####[facility] [place] [address] [address]Dr. Vel Trejo Globulin (S) [Mass/Vol] 3.1 g/dL Normal [facility] Comment on above: Performed By: #### C JOHN PAUL, HSTROPN ####[facility] [place] [address] [address]Dr. Vel Trejo Glucose [Mass/Vol] 97 mg/dL Normal 74-106 [facility] Comment on above: Performed By: #### C JOHN PAUL, HSTROPN ####[facility] [place] [address] [address]Dr. Vel Trejo Potassium [Moles/Vol] 3.8 mmol/L Normal 3.5-5.1 [facility] Comment on above: Performed By: #### C JOHN PAUL, HSTROPN ####[facility] [place] [address] [place], [place] [address]Dr. Vel Trejo Protein [Mass/Vol] 6.6 g/dL Normal 6.4-8.2 [facility] Comment on above: Performed By: #### C JOHN PAUL, HSTROPN ####[facility] [place] [address] [place], [place] [address]Dr. Vel Trejo Sodium [Moles/Vol] 138 mmol/L Normal 136-145 [facility] Comment on above: Performed By: #### C JOHN PAUL, HSTROPN ####[facility] [place] [address] [place], [place] [address]Dr. Vel Trejo Urea nitrogen [Mass/Vol] 14.0 mg/dL Normal 7.0-18.0 [facility] Comment on above: Performed By: #### C JOHN PAUL, HSTROPN ####[facility] [place] [address] [place], [place] [address]Dr. Vel Trejo Urea nitrogen/Creatinine [Mass ratio] 13.5 mg/mg Normal [facility] Comment on above: Performed By: #### C JOHN PAUL, HSTROPN ####[facility] [place] [address] [place] [address]T[address]Katerine Trejo TROPONIN, HIGH SENSITIVITYon 05-11-2022 HSTROP 15.4 pg/mL Normal 4.0-76.1 [facility] Comment on above: Result Comment: CUT- OFF POINTS HAVE BEEN ESTABLISHED BASED ON THE FOURTH UNIVERSAL DEFINITIONS OF MYOCARDIAL INFARCTION. THE UPPER REFERENCE LIMIT (URL) OF TROPONIN, DEFINED THE 99TH PERCENTILE OF cTnI DISTRIBUTION IN A REFERENCE POPULATION, HAS BEEN CONFIRMED THE DECISION THRESHOLD FOR NC DIAGNOSIS. Performed By: #### C MP, HSTROPN ####[facility] [place] [address] [place], [place] [address]OkKaterine aMldonadodanny Trejo XR CHEST 1 Von 05-11-2022 XR CHEST 1 V EXAMINATION: XR CHEST 1 V HISTORY: SHORTNESS OF BREATH , cough COMPARISON: XR chest 01/18/2017 FINDINGS: LUNGS: No significant pulmonary parenchymal abnormalities. VASCULATURE: No increased pulmonary vasculature. PLEURA: No pneumothorax, effusion, or pleural thickening. CARDIAC: No cardiomegaly or cardiac silhouette abnormality. MEDIASTINUM: No visible mass or adenopathy. BONES: No fracture or visible bone lesion. OTHER: Negative. IMPRESSION: 1. No acute cardiopulmonary process. Electronically authenticated by: TUCKER MCWILLIAMS Date: 2022-05-11 09:30 Normal [facility] [place] CBC AUTO DIFFon 02-27-2022 BASO # 0.0 103/ul Normal 0.0-0.1 [facility] Comment on above: Performed By: #### C BC #### [facility] [place] [facility] [address] [address] [address] Vel Trejo Basophils/100 WBC (Bld) 0.7 % Normal 0.2-2.0 [facility] Comment on above: Performed By: #### C BC #### [facility] [place] [facility] [address] [address] [address] Vel Trejo EO # 0.2 103/ul Normal 0.0-0.7 [facility] Comment on above: Performed By: #### C BC #### [facility] [place] [facility] [address] [address] [address] Vel Trejo Eosinophils/100 WBC (Bld) 4.0 % Normal 0.9-7.0 [facility] Comment on above: Performed By: #### C BC #### [facility] [place] [facility] [address] [place] [address] Dr. Vel Trejo Erythrocyte distribution width (RBC) [Ratio] 14.6 % Normal 11.0-15.0 [facility] Comment on above: Performed By: #### C BC #### [facility] [place] [facility] [address] [place] [address] Dr. Vel Trejo Hematocrit (Bld) [Volume fraction] 44.1 % Normal 42.0-54.0 [facility] Comment on above: Performed By: #### C BC #### [facility] [address] [place] [address] Dr. Vel Trejo Hemoglobin (Bld) [Mass/Vol] 14.2 g/dL Normal 14.0-18.0 [facility] Comment on above: Performed By: #### C BC #### [facility] [address] [place] [address] Dr. Vel Trejo IG # 0.01 10e3/ul Normal 0.00-0.03 [facility] Comment on above: Performed By: #### C BC #### [facility] [address] [place] [address] Dr. Vel Trejo IG % 0.2 % Normal 0.0-0.5 [facility] Comment on above: Performed By: #### C BC #### [facility] [address] [place] [address] Dr. Vel Trejo LYMPH # 1.6 103/ul Normal 1.2-3.8 [facility] Comment on above: Performed By: #### C BC #### [facility] [address] [place] [address] Dr. Vel Trejo Lymphocytes/100 WBC (Bld) 27.1 % Normal 20.5-60.0 [facility] Comment on above: Performed By: #### C BC #### [facility] [address] [place] [address] Dr. Vel Trejo MANUAL DIFF REQ NO Normal [facility] Comment on above: Performed By: #### C BC #### [facility] [address] [place] [address] Dr. Vle Trejo MCH (RBC) [Entitic mass] 28.8 pg Normal 25.9-34.0 [facility] Comment on above: Performed By: #### C BC #### [facility] [address] [place] [address] Dr. Vel Trejo MCHC (RBC) [Mass/Vol] 32.2 g/dL Normal 29.9-35.2 [facility] Comment on above: Performed By: #### C BC #### [facility] [address] [place] [address] Dr. Vel Trjeo MCV (RBC) [Entitic vol] 89.5 fL Normal 80.0-94.0 [facility] Comment on above: Performed By: #### C BC #### [facility] [address] [place] [address] Dr. Vel Trejo MONO # 0.6 103/ul Normal 0.3-0.8 [facility] Comment on above: Performed By: #### C BC #### [facility] [address] [place] [address] Dr. Vel Trejo Monocytes/100 WBC (Bld) 10.5 % Normal 1.7-12.0 [facility] Comment on above: Performed By: #### C BC #### [facility] [address] [place] [address] Dr. Vel Trejo NEUT # 3.5 103/ul Normal 1.4-6.5 [facility] Comment on above: Performed By: #### C BC #### [facility] [address] [place] [address] Dr. Vel Trejo Neutrophils/100 WBC (Bld) 57.5 % Normal 43.0-75.0 [facility] Comment on above: Performed By: #### C BC #### [facility] [address] [place] [address] Dr. Vel Trejo Platelet mean volume (Bld) [Entitic vol] 10.3 fL Normal 9.5-13.5 [facility] Comment on above: Performed By: #### C BC #### [facility] [address] [address] [address] Vel Trejo PLT 166 103/ul Normal 150-450 [facility] Comment on above: Performed By: #### C BC #### [facility] [address] [address] [address] Vel Trejo RBC 4.93 106/ul Normal 4.70-6.10 [facility] Comment on above: Performed By: #### C BC #### [facility] [address] [address] [address] Vel Trejo WBC 6.0 103/ul Normal 4.0-11.0 [facility] Comment on above: Performed By: #### C BC #### [facility] [address] [place] [address] Dr. Vel Trejo LIPID PROFILEon 02-27-2022 CHOL-HDL RATIO NORM SEE BELOW Normal [facility] Comment on above: Result Comment: 3.3 - 4.4 LOW RISK 4.4 - 7.1 AVERAGE RISK 7.1 - 11.0 MODERATE RISK >11.0 HIGH RISK Performed By: #### L IPID, CMP #### [facility] [address] [place] [address] Dr. Vel Trejo Cholesterol [Mass/Vol] 137 mg/dL Normal <=200 [facility] Comment on above: Performed By: #### L IPID, CMP #### [facility] [address] [place] [address] Dr. Vel Trejo Cholesterol in HDL [Mass/Vol] 30 mg/dL Critically low 40-60 [facility] Comment on above: Performed By: #### L IPID, CMP #### [facility] [address] [place] [address] Dr. Vel Trejo Cholesterol in LDL [Mass/Vol] 88.8 mg/dL Normal [facility] Comment on above: Performed By: #### L IPID, CMP #### [facility] [address] [place] [address] Dr. Vel Trejo Cholesterol.total/Choles terol in HDL [Mass ratio] 4.6 {ratio} Normal [facility] Comment on above: Performed By: #### L IPID, CMP #### [facility] [address] [address] [address] Vel Trejo HDL NORMAL > or = 60 mg/dl - LOW CARDIOVASCULAR RISK <40 mg/dl - HIGH CARDIOVASCULAR RISK Normal [facility] Comment on above: Performed By: #### L IPID, CMP #### [facility] [address] [address] [address] Vel Trejo LDL CALC NORMAL SEE BELOW Normal [facility] Comment on above: Result Comment: <100 mg/dl OPTIMAL 100 - 129 mg/dl NEAR OR ABOVE OPTIMAL 130 - 159 mg/dl BORDERLINE HIGH 160 - 189 mg/dl HIGH >190 mg/dl VERY HIGH Performed By: #### L IPID, CMP #### [facility] [address] [place] [address] Dr. Vel Trejo Triglyceride [Mass/Vol] 91 mg/dL Normal <=150 T [facility] Comment on above: Performed By: #### L IPID, CMP #### [facility] [address] [place] [address] Dr. Vel Trejo VLDL CALC 18.2 mg/dL Normal [facility] Comment on above: Performed By: #### L IPID, CMP #### [facility] [address] [place] [address] Dr. Vel Trejo PROF 14(COMP METB)on 022 Albumin [Mass/Vol] 3.6 g/dL Normal 3.4-5.0 [facility] Comment on above: Performed By: #### L IPID, CMP #### [facility] [address] [place] [address] Dr. Vel Trejo Albumin/Globulin [Mass ratio] 1.2 {ratio} Normal [facility] Comment on above: Performed By: #### L IPID, CMP #### [facility] [address] [address] [address] Vel Trejo ALP [Catalytic activity/Vol] 57 U/L Normal 46-116 [facility] Comment on above: Performed By: #### L IPID, CMP #### [facility] [address] [address] [address] Vel Trejo ALT [Catalytic activity/Vol] 24 U/L Normal 16-63 [facility] Comment on above: Performed By: #### L IPID, CMP #### [facility] [address] [address] [address] Vel Trejo Anion gap [Moles/Vol] 10.3 mmol/L Normal [facility] Comment on above: Performed By: #### L IPID, CMP #### [facility] [address] [address] [address] Vel Trejo AST [Catalytic activity/Vol] 17 U/L Normal 15-37 [facility] Comment on above: Performed By: #### L IPID, CMP #### [facility] [address] [address] [address] Vel Trejo Bilirubin [Mass/Vol] 0.5 mg/dL Normal 0.2-1.0 [facility] Comment on above: Performed By: #### L IPID, CMP #### [facility] [address] [address] [address] Vel Trejo Calcium [Mass/Vol] 9.0 mg/dL Normal 8.5-10.1 [facility] Comment on above: Performed By: #### L IPID, CMP #### [facility] [address] [address] [address] Vel Trejo Chloride [Moles/Vol] 108 mmol/L Critically high 98-107 [facility] Comment on above: Performed By: #### L IPID, CMP #### [facility] [address] [address] [address] Vel Trejo CO2 [Moles/Vol] 30.2 mmol/L Normal 21.0-32.0 [facility] Comment on above: Performed By: #### L IPID, CMP #### [facility] [address] [address] [address] Vel Trejo Creatinine [Mass/Vol] 1.07 mg/dL Normal 0.70-1.30 [facility] Comment on above: Performed By: #### L IPID, CMP #### [facility] [address] [address] [address] Vel Trejo EGFR-AF PRYDEINIG >60 Normal >=60 [facility] Comment on above: Performed By: #### L IPID, CMP #### [facility] [address] [address] [address] Vel Trejo EGFR-NON AF PRYDEINIG >60 Normal >=60 [facility] Comment on above: Performed By: #### L IPID, CMP #### [facility] [address] [address] [address] Vel Trejo Globulin (S) [Mass/Vol] 3.1 g/dL Normal T [facility] Comment on above: Performed By: #### L IPID, CMP #### [facility] [address] [address] [address] Vel Trejo Glucose [Mass/Vol] 101 mg/dL Normal 74-106 [facility] Comment on above: Performed By: #### L IPID, CMP #### [facility] [address] [address] [address] Vel Trejo Potassium [Moles/Vol] 4.5 mmol/L Normal 3.5-5.1 [facility] Comment on above: Performed By: #### L IPID, CMP #### [facility] [address] [address] [address] Vel Trejo Protein [Mass/Vol] 6.7 g/dL Normal 6.4-8.2 [facility] Comment on above: Performed By: #### L IPID, CMP #### [facility] [address] [address] [address] Vel Trejo Sodium [Moles/Vol] 144 mmol/L Normal 136-145 [facility] Comment on above: Performed By: #### L IPID, CMP #### [facility] [address] [address] [address] Vel Trejo Urea nitrogen [Mass/Vol] 16.0 mg/dL Normal 7.0-18.0 [facility] Comment on above: Performed By: #### L IPID, CMP #### [facility] [address] [address] [address] Vel Trejo Urea nitrogen/Creatinine [Mass ratio] 15.0 mg/mg Normal [facility] Comment on above: Performed By: #### L IPID, CMP #### [facility] [address] [address] [address] Vel Trejo URIC ACID SERUMon 02-24-2022 Urate [Mass/Vol] 7.8 mg/dL Critically high 3.5-7.2 [facility] Comment on above: Performed By: #### U CARLOS #### [facility] [address] [address] [address] Vel Trejo Vital Signs Date Time Vital Sign Value Performing Clinician Facility 07-28-2023 10:25-0500 Body height 182.88 cm Yue Estevez Other [facility] 07-28-2023 10:25-0500 Body mass index (BMI) [Ratio] 35.07 kg/m2 Yue Estevez Other [facility] Other 07-28-2023 10:25-0500 Body temperature 98.1 [degF] Yue Estevez Other [facility] Other 07-28-2023 10:25-0500 Body weight 117.3 kg Yue Estevez Other [facility] Other 07-28-2023 10:25-0500 Body weight 117.29 kg PHYSICIAN ANI RENTERIA [facility] 07-28-2023 10:25-0500 Diastolic blood pressure 73 mm[Hg] Yue Estevez Other [facility] 07-28-2023 10:25-0500 Respiratory rate 18 /min Yue Estevez Other [facility] Other 07-28-2023 10:25-0500 SaO2% (BldA) [Mass fraction] 98 % Yue Estevez Other [facility] Other 07-28-2023 10:25-0500 Systolic blood pressure 117 mm[Hg] Yue Estevez Other [facility] Encounters Encounter Date Encounter Type Care Provider Facility Start: 10-22-2023 End: 10-23-2023 ambulatory SHARAN AMAYA Not Available Start: 10-22-2023 End: 10-22-2023 ambulatory PHYSICIAN NO [facility] Work Phone: Start: 10-22-2023 End: 10-22-2023 Patient encounter procedure PHYSICIAN NO [facility] [address] Work Phone: Start: 09-28-2023 Telephone encounter Orders Sup port User Transcribe [facility] Comment on above: Sleep Lab (Inquiry) Start: 09-28-2023 End: 09-28-2023 ambulatory VLADIMIR CAVAZOS Not Available Start: 09-04-2023 End: 09-04-2023 ambulatory ABBEY ROWE Not Available Start: 07-28-2023 End: 07-28-2023 ambulatory Yue Estevez Other [facility] Other Start: 07-28-2023 Office outpatient vi sit 15 minutes Yue Estevez [facility] Start: 07-28-2023 End: 07-28-2023 Patient encounter procedure PHYSICIAN NO [facility]- Start: 05-30-2023 End: 05-30-2023 ambulatory NAOMI SAENZ Not Available Start: 10-16-2022 ambulatory Jaron Agee Facility :[facility] Start: 10-11-2022 End: 10-12-2022 ambulatory Clarice Gilman Facility:[facility] Start: 10-11-2022 ambulatory Jaron Agee Facility:[facility] Start: 05-11-2022 End: 05-11-[address] PEG BHATT Facility:[facility] Start: 02-27-2022 End: 02-28-[address] SANTIAGO PERAZA Facility:[facility] Start: 02-24-2022 End: 02-25-[address] SANTIAGO PERAZA Facility:[facility] Start: 09-08-2021 End: 09-08-2021 ambulatory Vladimir Gonsalves Other [facility] [employer] Other Start: 09-08-2021 Telephone encounter Vladimir Hagan [facility] Neurosurgery Start: 09-05-2021 Transcribe Orders Valentina Summers MD Work Phone: [facility] Comment on above: Protrusion of lumbar intervertebral disc (Primary Dx) Start: 08-24-2021 End: 08-25-2021 ambulatory LINDA RUTH Facility:[facility] Start: 01-30-2017 End: 01-31-2017 Ambulatory DEFAULT PHYSICIAN Facility:[facility] Procedures Date Procedure Procedure Detail Performing Clinician Start: 02-27-2022 PSA screening LINDA Gallardo Comment on above: Performed By: #### P SAD #### [facility] [address] [place] [address] Dr. Vel Trejo Plan of Treatment Date Care Activity Detail Author Start: 10-22-2023 [facility] Homogenous nuclear A b pattern [Titer] in Serum [facility] Nuclear Ab [Titer] in Serum [facility] Payers Date Payer Category Payer Self-pay 2017 Unknown 2008 Medicare [id number] 1959 Medicare [id number] 2.1 [id number] 1959 Unknown [id number] 2.16 [id number] 1950 Unknown [id number] 2.16.84 [id number] 1950 Unknown [id number] 2.16.84 [id number] 1950 Unknown [id number] 2.16.84 [id number] 1950 Unknown [id number] 2.16.84 [id number] 1950 Unknown [id number] 2.16.8 [id number] 1950 Unknown [id number] 2.16.8 [id number] 1950 Unknown [id number] 2.16.8 40.1.802788.3.579.2.727 1950 Unknown [id number] 2.16.84 [id number] 1950 Unknown [id number] 2.16.84 0.1.470828.3.579.2.1259 1950 Unknown [id number] 2.16.84 [id number] 1950 Unknown [id number] 2.16.840 .[id number] Medicare [id number] Medicare [place] [facility] PFFS OP [id number] 150 [id number] Unknown [id number] 2.16.8 [id number] Social History Date Type Detail Facility Tobacco smoking status IAIS Tobacco smoking consumption unknown [facility] Start: 1950 Sex Assigned At Not on file [facility] Start: 02-15-2017 End: 08-12-2020 Sex Assigned At [employer] Other Start: 02-15-2017 Tobacco smoking status [facility] Ex-smoker [facility] History of tobacco use Current smoker [facility] History of tobacco use Cigarette Smoker [facility] Start: 02-20-2017 Alcohol intake Current drinke r of alcohol (finding) [facility] Start: 02-15-2017 End: 08-12-2020 History of Social function [facility]care [facility] Start: 07-28-2023 Tobacco smoking status NHIS Never smoked tobacco (finding) [facility] Start: 1950 Sex Assigned At Male F [facility] Medical Equipment Procedure Code Equipment Code Equipment Origin al Text Equipment Identifier Dates Lens Mx60 20.5 - [id number] Start: 02-19-2017 Note 09-28-2023 Telephone Encounter - Nia Mary - 09/28/2023 3:09 PM EDT Note Date & Type Note Facility 09-28-2023 Miscellaneous Notes Formattin g of this note might be different from the original. 09/27 Patient left message, please call be back Returned call. Patient is looking to schedule a sleep study that his doctor sent over. Advised patient that we do not have an order for study at this time. Patient will follow up with doctor on Sunday documented in this encounter [facility] Telephone encounter Note 09-28-2023 Telephone Encounter - Nia Rodriguezria - 09/28/2023 3:09 PM EDT Note Date & Type Note Facility 09-28-2023 Telephone encount er Note 09/27 Patient left message, please call be back Returned call. Patient is looking to schedule a sleep study that his doctor sent over. Advised patient that we do not have an order for study at this time. Patient will follow up with doctor on Sunday [facility] Evaluation note 07-28-2023 Note Date & Type Note Facility 07-28-2023 Evaluation note Encounter Date Diagnosis Assessment Notes Jul, Contact dermatitis (ICD-10 - L25.9) rx sent, take as directed. may continue with topical cortisone and otc antihistamine for itching. wash with clean water and mild soap only. pt may cover areas that are weeping or open if risk of getting dirty or irritated, advised non-occlusive dressing. seek immediate eval via ER if warning s/s of anaphylaxis. f/u in 3-4 days if s/s persists or worsen despite tx. 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 Today he is complaining of chronic right knee pain and left lower buttock pain that goes down his leg to the level of his ankle. He was last seen in March by Dr. Hatch when his lumbar MRI was reviewed and LES was recommended. He was also referred to Dr. Gonsalves in [place] for Neurosurgical consult. The patient and state that Dr. Gonsalves felt he did not address the problem and stated he needed therapy only. Since then he has started Celebrex 200 mg b.i.d. and that has proven to be very effective for him but he did not call for the LES. Today his pain is 7-8 out of 10 and it varies per his activity, mostly with lying too long and crossing legs aggravate both his knee and his back. He feels the Celebrex is still effective but his pain has increased. In addition to Celebrex, he takes gabapentin 400 mg b.i.d. He does feel this helps with his leg tingling and paresthesia. He is inquiring today about possible epidural injection or other options for Neurosurgery. He denies any knee pain pattern or loss of bowel or bladder function. REVIEW OFSYMPTOMS, PAST MEDICAL HISTORY, ALLERGIES AND IMAGES: Have been reviewed and noted in the chart. PHYSICAL EXAM: VITAL SIGNS: Blood pressure 147/94, heart rate is 57, temperature is 96.8. Height is 6' , weighs 129 kg. GENERAL APPEARANCE: Very pleasant, no acute distress and appropriate. FOCUSED EXAM: Right knee: No crepitus noted to range of motion which is intact and minimally guarded. Negative drawer test. No effusion noted. BACK: Reproduction of spinal axial pain noted to direct compression of the L3, L4, L5 facets bilaterally which is concordant with ill facet arthropathy, lumbar spondylosis. Upon compression, radicular pain was reproduced going down the left buttock to the level of the gluteal fold. Range of motion is guarded in lateral rotation and flexion/extension. Motor strength is 5 out of 5 bilateral with blunted bilateral patella and Achilles reflexes. NEUROLOGICAL: Radicular pain along the L4, L5 dermatome on the left side. DIAGNOSIS: Lumbar spinal canal stenosis, lumbar radiculitis, right knee osteoarthritis. PLAN: I spent a significant amount of time discussing with the patient and the regarding proper consults and treatment. At this time he declines further lumbar epidural steroid injection and would like to move forward with a secondary neurosurgical consult. A referral will be sent to Dr. Almeida at [facility]. In regards to his knee, orthopedic referral will be sent to Dr. Magana regarding further treatment and feedback. The patient agrees with the plan of care and they have been asked to call our office with feedback. They agree and the patient will follow-up with us on a p.r.n. basis. Electronically Authenticated and Edited by: Linda Ruth HOSE TUBING BACKER on 08/25/2021 04:54 PM [facility] Signed and Approved by: LINDA RUTH . 08/25/2021 16:54:00 [facility] Evaluation note Note Date & Type Note Facility Evaluation note Diagnosis Protrusion of lumbar intervertebral disc- Primary documented in this encounter [facility] Evaluation note Note Date & Type Note Facility Evaluation note No Information [place] [employer] Other Evaluation note Note Date & Type Note Facility Evaluation note No assessment information [facility] Work Phone: History general Narrative - Reported Note Date & Type Note Facility History general Narrative - Reported Type Medical History HTN Medical History VV Medical History A. fib Surgical History Rt knee arthroscope Surgical History Tonsillectomy Surgical History Toe proceedure Rt foot [facility] Other Instructions Note Date & Type Note Facility Instructions Not on filedocumented in this en counter [facility] Summary Purpose Family History No Family History Records Found Relationship Condition Age at Onset Recorded Date/T silvana father Unknown Not Specified Unknown natural son Heart disease Unknown sister Malignant neoplasm Unknown Advance Directives No Advanced Directives Records Found Advance Directive Response Recorded Date/ Time Advance Directives No October 10, 2 018 9:23am Reason for Referral Specialty Diagnoses / Procedures Referred By Contac t Referred To Contact Neurosurgery Diagnoses Protrusion of lumbar intervertebral disc Valentina Summers MD [address] [facility] [address] [place] [address] Valentina Summers MD [address] [facility] [place] [address] Referral ID Status Reason Start Date Expiration Date V isits Requested Visits Authorized [id number] Authorized 09/05/2021 09/05/2022 1 1 Chief Complaint and Reason for Visit Chief Complaint Rash All Over, Itchi ng Additional Source Comments (unrecognized sect ion and content) No Status Records FoundNo Status Records FoundNo Status Records FoundNo Status Records FoundNo Status Records Found INFORMATION SOURCE (unrecogn ized section and content) DATE CREATED AUTHOR 12/26/2017 [facility] DATE CREATED AUTHOR AUTHOR'S ORGANIZ ATION 05/15/2022 [facility] DATE CREATED AUTHOR AUTHOR'S ORGANIZ ATION 10/12/2022 [facility] DATE CREATED AUTHOR AUTHOR'S ORGANIZ ATION 10/27/2023 [facility] DATE CREATED AUTHOR AUTHOR'S ORGANIZ ATION 10/29/2023 [facility] Care Teams (unrecognized sec tion and content) [employer] Relationship Specialty Start Date End Date No, Physician [facility] PCP - General 09/05/21 [employer] Relationship Specialty Start Date End Date Vladimir Cavazos MD [address] [facility] [address] [place] [id number] PCP - General Internal Medicine 02/19/17 Team Status: Active Member Role Status Dates PHYSICIAN NO FAMILY Primary Care Provider Active Team Status: Inactive Member Role Status Dates Yue Estevez NP Attending Provider Active Start: July 28, 2023 End: July 28, 2023 Team Status: Inactive Member Role Status Dates PHYSICIAN NO FAMILY Primary Care Provider Active Start: October 22, 2023 End: October 22, 2023 Sharan Amaya MD Attending Provider Active St art: October 22, 2023 End: October 22, 2023 REASON FOR VISIT (unrecogniz ed section and content) Reason Onset Date Comments Sleep Lab 09/28/2023 Inquiry Goals (unrecognized section and content) Goals may be documented in a n alternate section FOR RECORDS PERTAINING TO PATIENTS WHO ARE OR HAVE BEEN ENROLLED IN A CHEMICAL DEPENDENCY/SUBSTANCEABUSE PROGRAM, SOME INFORMATION MAY BE OMITTED. This clinical summary was aggregated from multiple sources. Caution should be exercised in using it in the provision of clinical care. This summary normalizes information from multiple sources, and as a consequence, information in this document may materially change the coding, format and clinical context of patient data. In addition, data may be omitted in some cases. CLINICAL DECISIONS SHOULD BE BASED ON THE PRIMARY CLINICAL RECORDS. [email or web address] [facility]. provides no warranty or guarantee of the accuracy or completeness of information in this document.
== END 2023-12-11 19:32 | disposition home or self-care (01) ==
LOC: SLEEP 19:32
PROVIDERS: PCP Psychiatry & Neurology Neurology; Visit Provider Psychiatry & Neurology Neurology
DX: G47.33 Obstructive sleep apnea (adult) (pediatric) (principal)
CPT/HCPCS: 95810